=== PATIENT | female | born 1975 | race Caucasian/White ===

== ENCOUNTER 2017-09-26 12:54 | Inpatient (IN) | payer OTHER ==
[~2017-09-26] VITALS: Ht 157.5 cm; Wt 100.7 kg
[2017-09-26 12:56] VITALS: Ht 157.5 cm; Wt 100.7 kg
[2017-09-26 13:58] LABS: BASOPHIL % 0.2 % (0-2); PLATELET COUNT 343 x10^3mcL (130-400)
[2017-09-26 13:59] LABS: RED CELL DISTRIBUTION WIDTH 15.6 % (11.5-14.5)
[2017-09-26 14:13] LABS: CALCIUM 8.8 mg/dL (8.5-10.1); CARBON DIOXIDE 26.6 mmol/L (21-32); CHLORIDE SERUM 100 mmol/L (98-107); CREATININE SERUM 0.6 mg/dL (0.6-1.0); GFR1 > 60 mL/min; GLUCOSE SERUM 206 mg/dL (74-106); POTASSIUM SERUM 3.8 mmol/L (3.5-5.1); SODIUM SERUM 135 mmol/L (136-145)
[2017-09-26 14:23] LABS: ALKALINE PHOSPHATASE 124 U/L (46-116); ALT/SGPT 41 U/L (14-59); AST/SGOT 35 U/L (15-37); BILIRUBIN TOTAL 0.34 mg/dL (0.20-1.00); LIPASE 122 IU/L (73-393); TOTAL PROTEIN, SERUM 7.7 g/dL (6.4-8.2)
[2017-09-26 14:24] LABS: ALBUMIN 3.3 g/dL (3.4-5.0)
[2017-09-26 14:39] LABS: rbc morphology (normal/abnorm) ABNORMAL (NORMAL)
[2017-09-26 17:03] LABS: microscopic required? NO
[2017-09-26 17:06] LABS: T3 TOTAL 1.11 ng/mL
[2017-09-26 17:10] VITALS: BP 145/70
[2017-09-26 17:54] LABS: FREE T4 0.85 ng/dL (0.76-1.46); FREE THYROXINE INDEX 2.4 ug/dL (1.4-4.5); T4(THYROXINE) 7.7 ug/dL (4.7-13.3)
[2017-09-26 18:04] LABS: UA SPECIFIC GRAVITY >=1.030 (1.005-1.035); urine erythrocyte NEGATIVE (NEGATIVE)
[2017-09-26 18:06] LABS: CHOLESTEROL/HDL RATIO 3.9; MAGNESIUM 2.1 mg/dL (1.8-2.4); PHOSPHOROUS 3.5 mg/dL (2.5-4.9)
[2017-09-26 22:01] VITALS: BP 119/61
[2017-09-27 05:27] VITALS: BP 105/52
[2017-09-27 07:22] LABS: BASOPHIL % 0.3 % (0-2); PLATELET COUNT 302 x10^3mcL (130-400)
[2017-09-27 07:31] LABS: RED CELL DISTRIBUTION WIDTH 15.8 % (11.5-14.5)
[2017-09-27 07:55] LABS: CALCIUM 8.3 mg/dL (8.5-10.1); CARBON DIOXIDE 26.2 mmol/L (21-32); CHLORIDE SERUM 102 mmol/L (98-107); CREATININE SERUM 0.7 mg/dL (0.6-1.0); GFR1 > 60 mL/min; GLUCOSE SERUM 127 mg/dL (74-106); MAGNESIUM 2.1 mg/dL (1.8-2.4); PHOSPHOROUS 3.1 mg/dL (2.5-4.9); SODIUM SERUM 136 mmol/L (136-145)
[2017-09-27 08:49] VITALS: BP 96/60
[2017-09-27 12:45] VITALS: BP 107/55
[2017-09-27 16:20] VITALS: BP 137/74
[2017-09-27 21:04] VITALS: BP 132/74
[2017-09-28 05:47] VITALS: BP 124/63
[2017-09-28 07:48] LABS: BASOPHIL % 0.2 % (0-2); PLATELET COUNT 299 x10^3mcL (130-400)
[2017-09-28 07:51] LABS: RED CELL DISTRIBUTION WIDTH 15.9 % (11.5-14.5)
[2017-09-28 07:52] LABS: rbc morphology (normal/abnorm) ABNORMAL (NORMAL)
[2017-09-28 08:09] LABS: ALKALINE PHOSPHATASE 110 U/L (46-116); ALT/SGPT 36 U/L (14-59); AST/SGOT 23 U/L (15-37); BILIRUBIN TOTAL 0.28 mg/dL (0.20-1.00); CALCIUM 8.3 mg/dL (8.5-10.1); CARBON DIOXIDE 24.2 mmol/L (21-32); CHLORIDE SERUM 106 mmol/L (98-107); CREATININE SERUM 0.6 mg/dL (0.6-1.0); GFR1 > 60 mL/min; GLUCOSE SERUM 142 mg/dL (74-106); LIPASE 93 IU/L (73-393); SODIUM SERUM 137 mmol/L (136-145); TOTAL PROTEIN, SERUM 6.8 g/dL (6.4-8.2)
[2017-09-28 18:32] VITALS: BP 152/77
[2017-09-28 21:11] VITALS: BP 129/69
[2017-09-29 05:10] VITALS: BP 116/60
[2017-09-29 08:30] VITALS: BP 153/87
[2017-09-29] MEDS ORDERED: FLA500 PO (15:26)
[2017-09-29] MEDS ORDERED: CIPRO500 MG PO (15:26)
[2017-09-29 16:05] VITALS: BP 153/87
== END 2017-09-29 19:18 | disposition home or self-care (01) | DRG 391 ==
LOC: ED 12:54 → MU 16:04
PROVIDERS: Emergency Medicine; Internal Medicine; Internal Medicine Gastroenterology
PROC: 0DB68ZX Excision of Stomach, Via Natural or Artificial Opening Endoscopic, Diagnostic (ICD-10-PCS; principal; 2017-09-28 12:30)
PROC: 0DJD8ZZ Inspection of Lower Intestinal Tract, Via Natural or Artificial Opening Endoscopic (ICD-10-PCS; 2017-09-28 12:30)
DX: K29.60 Other gastritis without bleeding (principal); N17.0 Acute kidney failure with tubular necrosis; E44.1 Mild protein-calorie malnutrition; K57.92 Diverticulitis of intestine, part unspecified, without perforation or abscess without bleeding; K25.9 Gastric ulcer, unspecified as acute or chronic, without hemorrhage or perforation; J45.909 Unspecified asthma, uncomplicated; E11.65 Type 2 diabetes mellitus with hyperglycemia; D50.9 Iron deficiency anemia, unspecified; E78.5 Hyperlipidemia, unspecified; Z68.36 Body mass index [BMI] 36.0-36.9, adult; Z90.49 Acquired absence of other specified parts of digestive tract; R14.0 Abdominal distension (gaseous)
CPT/HCPCS: 43235; 45378; 83880; 84439; 87046; 87046-59; J0295; J1200; J1610; J1885; J1956; J2250; J2310; J2405; J3010; J3490; J7030; Q0092; Q9967